=== PATIENT | female | born 1955 | race Caucasian/White ===

== ENCOUNTER → 2016-07-03 | Outpatient (CLI) | payer MEDICARE ==
[~2016-07-03] MED LIST: ACETAMINOPHEN PO; ALBUTEROL; ALBUTEROL INH; ALPRAZOLAM PO; CALCIUM500 MG PO; COUMADIN PO; COZAAR100 MG PO; CRESTOR PO; DEMEROL PO; FERROUS GL325 ( 37.5 PO; FISH OIL 1,0001 CAP PO; HCTZ PO; HUMIRA; HYDRALAZINE HCL50 MG PO; IBUPROFEN PO; IBUPROFEN800 MG PO; KEFLEX PO; LANSOPRAZOLE30 M2 PO; LISINOPRIL PO; LORTAB 7.5-5001 TAB PO; MONTELUKAST SOD10 MG PO; NEURONTIN300 MG PO; NORVASC PO; OMEPRAZOLE40 MG PO; OSCAL + D PO; PERCOCET5/325 PO; PERCOCET7.5 PO; PHENERGAN PO; PRAVASTATIN SOD20 MG PO; PREDNISONE PO; PREVACID PO; PRILOSEC20 MG PO; PRINIVIL40 MG PO; PROTONIX PO; PROZAC PO; TOPROL XL 50 MG50 MG PO; TOPROL XL PO; TOPROL XL50 MG PO; VITAMIN D 4001 UDTAB PO; VITAMIN D1000 UNIT PO; [UNRECOGNIZED DRUG - OTHER]
--- NOTE | ~2016-07-03 | MY11 ---
[facility] A Service [facility] RADIOLOGY TEXT RESULTS PATIENT: MAGAN MARTINEZ LOCATION: [facility] : 51 UNIT #: [id number] AGE: [address]: ANNALISE CHEUNG MD (INT MED) SEX: F ORDER DR: [id number] [address] [address] [id number] O MR#: [id number] Acc #: [id number] NAME: MAGAN MARTINEZ : 1955 SEX: F STUDY DATE/TIME: 07/03/2016 10:34 UNIT: [facility] ROOM: STUDY DESCRIPTION: MY Mammogram Screening Dig Konrad Attending Physician: Annalise Cheung M.D. Referring Physician: Annalise Cheung M.D. Ordering Physician: Annalise Cheung M.D. Primary Care Physician: Annalise Chenug M.D. MEDICAL IMAGING REPORT This report is preliminary unless electronic signature is present. EXAM Bilateral digital screening with CAD. INDICATION Routine screening. No current complaints. Family history of breast cancer in aunt. COMPARISON 02/21/2011 and 04/27/2008. FINDINGS MLO and CC views of each breast were obtained. Exam was reviewed with FDA-approved CAD. Breasts are almost all fatty replaced. There are no masses or calcifications. IMPRESSION No change and no evidence of malignancy. Patients over the age of 40 are entered into a reminder system with target due date for the next mammogram. A result letter will be sent to the patient. BIRADS: 1 Negative. Dictated by... Anthony Rios M.D. THIS IS AN ELECTRONICALLY VERIFIED REPORT Anthony Rios M.D. at 07/04/2016 7:13 AM FEL/gz TD: 07/03/2016 16:52 [facility] A Service [facility] RADIOLOGY TEXT RESULTS PATIENT: MAGAN MARTINEZ LOCATION: [facility] : 51 UNIT #: [id number] AGE: [address]: ANNALISE CHEUNG MD (INT MED) SEX: F ORDER DR: JOB #: [id number] MEDICAL IMAGING REPORT
--- NOTE | ~2016-07-03 | BD1 ---
[facility] A Service of [facility] & [facility] RADIOLOGY TEXT RESULTS PATIENT: MAGAN MARTINEZ LOCATION: [facility] : 51 UNIT #: [id number] AGE: [address]: ANNALISE CHEUNG MD (INT MED) SEX: F ORDER DR: [id number] [address] [address] [id number] O MR#: [id number] Acc #: [id number] NAME: MAGAN MARTINEZ : 1955 SEX: F STUDY DATE/TIME: 07/03/2016 10:46 UNIT: [facility] ROOM: STUDY DESCRIPTION: BD Dexa Bone Dens 1+ Site Attending Physician: Annalise Cheung M.D. Referring Physician: Annalise Cheung M.D. Ordering Physician: Annalise Cheung M.D. Primary Care Physician: Annalise Cheung M.D. MEDICAL IMAGING REPORT This report is preliminary unless electronic signature is present. EXAM DXA scan, 07/03/2016 HISTORY Status post menopause with no hormone replacement therapy. Osteopenia. Rheumatoid arthritis. Hypertension with blood pressure medication. Smoking history for 35 years. FINDINGS Bone mineral density in the lumbar spine from L1-L4 was 1.357 g/cm2 which is 1.5 standard deviations above the mean when compared to the young adult reference population which is within the range of normal. This is 1.7 standard deviations above the mean when compared to the age-matched population. Bone mineral density in the left femoral neck was 0.923 g/cm2 which is 0.8 standard deviations below the mean when compared to the young adult reference population which is within the range of normal. This is 0.2 standard deviations below the mean when compared to the age-matched population. Bone mineral density in the right femoral neck was 0.986 g/cm2 which is 0.4 standard deviations below the mean when compared to the young adult reference population which is within the range of normal. This is 0.2 standard deviations above the mean when compared to the age-matched population. IMPRESSION Bone mineral density in the lumbar spine and the hips bilaterally within the range of normal. Dictated by... Phan Krishna M.D. [facility]. [facility] A Service of [facility] RADIOLOGY TEXT RESULTS PATIENT: MAGAN MARTINEZ LOCATION: [facility] : 51 UNIT #: [id number] AGE: [address]: ANNALISE CHEUNG MD (INT MED) SEX: F ORDER DR: THIS IS AN ELECTRONICALLY VERIFIED REPORT Phan Krishna M.D. at 07/04/2016 6:06 AM DAYANA/cortes TD: 07/03/2016 17:48 JOB #: [id number] MEDICAL IMAGING REPORT
== END | disposition home or self-care (01) ==
LOC: SMAM 09:58
DX: Z12.31 Encounter for screening mammogram for malignant neoplasm of breast (principal); Z13.820 Encounter for screening for osteoporosis; Z78.0 Asymptomatic menopausal state; Z80.3 Family history of malignant neoplasm of breast
CPT/HCPCS: 77080; G0202